=== PATIENT | male | born 2000 | race African-American/Black ===

== ENCOUNTER 2023-11-08 20:14 | Emergency (ER) | payer SELFPAY ==
[~2023-11-08] VITALS: Ht 165.1 cm; Wt 104.5 kg
[2023-11-08 20:29] VITALS: TEMP 97.7
[2023-11-08] MEDS ORDERED: IBUP-1492 PO (22:02)
[2023-11-08] MEDS ORDERED: ACET-3385 PO (22:03)
[2023-11-08 22:05] VITALS: BP 117/67; PULSE 73; RESP 16
== END 2023-11-08 22:30 | disposition home or self-care (01) ==
LOC: EMS 20:14
DX: S82.002A Unspecified fracture of left patella, initial encounter for closed fracture (principal); F12.90 Cannabis use, unspecified, uncomplicated; Z98.890 Other specified postprocedural states; Y93.39 Activity, other involving climbing, rappelling and jumping off; Y93.89 Activity, other specified; Y92.89 Other specified places as the place of occurrence of the external cause; Y99.8 Other external cause status
CPT/HCPCS: 29505; 99283